=== PATIENT | female | born 1950 ===

== ENCOUNTER 2024-11-17 05:11 | Day surgery (SDC) | payer OTHER ==
[2024-11-10 08:53] VITALS: BP 133/84
[~2024-11-17] VITALS: Ht 152.4 cm; Wt 70.8 kg
[~2024-11-17 05:11] MED LIST: ADVAIR HFA 115/12 GM; BENICAR20 MG PO; LIPITOR20 MG; SYNTHROID100 MCG PO; SYNTHROID88 MCG PO; XOPENEX HFA15 GM
[2024-11-17] MEDS ORDERED: BUPIVACAINE HCL/MPF 0.5% 30ML VIAL ONE (09:14)
[2024-11-17] MEDS ORDERED: POVIDONE-IODINE 118 ML BOTT TOP ONE (09:15)
[2024-11-17] MEDS ORDERED: DIBUCAINE 30 GM TUBE ONE (09:15)
[2024-11-17] MEDS ORDERED: LIDOCAINE HCL 1%/EPINEPHRINE 20ML VIAL IJ ONE (09:15)
[2024-11-17] MEDS ORDERED: HEMOSTATIC MATRIX 1 KIT KIT TOP ONE (09:15)
[2024-11-17] MEDS ORDERED: ERTAPENEM SODIUM 1,000 MG VIAL ONE (09:30)
[2024-11-17] MEDS ORDERED: BUPIVACAINE LIPOSOME/PF 266 MG/20 ML VIAL IJ ONE (09:31)
[2024-11-17] MEDS ORDERED: TAMSULOSIN HCL 0.4 MG CAP PO ONE ×2 (11:00→11:33)
[2024-11-17] MEDS ORDERED: OXYCODONE HCL5 MG PO (11:10)
== END 2024-11-17 14:05 | disposition home or self-care (01) ==
LOC: CIR.AMB 05:11
PROVIDERS: ATTEND Surgery
DX: K64.2 Third degree hemorrhoids (principal); K64.4 Residual hemorrhoidal skin tags; D12.8 Benign neoplasm of rectum; K62.5 Hemorrhage of anus and rectum; Z88.1 Allergy status to other antibiotic agents; I10 Essential (primary) hypertension; E78.5 Hyperlipidemia, unspecified; J45.909 Unspecified asthma, uncomplicated; E03.8 Other specified hypothyroidism; M19.90 Unspecified osteoarthritis, unspecified site